=== PATIENT | female | born 1950 | race Caucasian/White ===

== ENCOUNTER 2017-05-05 11:08 | Emergency (ER) | payer BC ==
[2017-05-05 11:22] VITALS: BP 142/67
--- NOTE | 2017-05-05 12:40 | UC ---
Shauna Fernandez Salem, scribed for Diogenes Duffy MD on 05/05/17 at 1126 . Throat Pain/Nasal Vignesh HPI - HPI Summary HPI Summary: Patient is a 67 y/o F who presents to the with a sore throat since the past 5 days. She reports trouble speaking, chest congestion, SOB with walking, and a cough productive for thick and creamy sputum (and increased rib pain with cough) . She denies ear pain, rhinorrhea, fever, chills, or diaphoresis. She states that she was in [place] recently and that her hotel room was a bit musty. PMHx of sleep apnea. Patients medication reviewed this visit. - History of Current Complaint Chief Complaint: UCGeneralIllness Stated Complaint: COUGH Hx Obtained From: Patient Onset/Duration: Gradual Onset, Lasting Days, Still Present Severity: Moderate Pain Intensity: 4 Pain Scale Used: 0-10 Numeric Cough: Sputum Appears Associated Signs & Symptoms: Positive: Hoarseness. Negative: Nasal Discharge, Fever - Allergies/Home Medications Allergies/Adverse Reactions: Allergies Allergy/AdvReac Type Severity Reaction Status Date / Time POISON [place]RA[place]/BLACK [place]AL[place] Allergy Severe SEVERE RASH Uncoded 05/05/17 11:14 Home Medications: Home Medications Citalopram TAB* [Celexa TAB*] 1 tab PO DAILY 05/05/17 [History Confirmed ] Ferrous Fumarate W/ B12-Vit C- [Ferocon] 05/05/17 [History] [id number] W/ APAP [Vicks Dayquil Severe ... [id number] mg/15Ml] [History] PMH/Surg Hx/FS Hx/Imm Hx Neurological History: Other Other Neurological History: Sleep apnea. - Surgical History Surgical History: Yes Surgery Procedure, Year, and Place: 2004 OPEN SASHA EN Y FOR WEIGHT LOSS, [place], [place]. 2006 ABDOMINAL HERNIA REPAIR, [place]. 2011 LEFT BUNIONECTOMY, [place], [place]. 06/2012 RIGHT KNEE MENISCUS SURGERY[place] [facility] [place] HX OF PLASTIC SURGERY. 2 TRIGGER THUMB-1 TRIGGER FINGER. CARPAL TUNNEL LEFT HAND. INGROWN TONE NAIL-WART REMOVAL OFF BOTTOM OF FOOT - Family History Known Family History: Negative: Blood Disorder - Social History Alcohol Use: Weekly Alcohol Amount: one glass of wine 4xs a week Substance Use Type: None Smoking Status (MU): Never Smoked Tobacco Review of Systems Constitutional: Negative Eyes: Negative ENT: Sore Throat, Other - Trouble speaking. Respiratory: Shortness Of Breath, Cough, Other - Chest congestion. All Other Systems Reviewed And Are Negative: Yes Physical Exam Triage Information Reviewed: Yes Vital Signs: Initial Vital Signs Temp 99.0 F 05/05/17 11:16 Pulse 71 05/05/17 11:16 Resp 18 05/05/17 11:16 BP 142/67 05/05/17 11:16 Pulse Ox 99 05/05/17 11:16 BP noted. Vital Signs Reviewed: Yes - Additional Comments The patient is well-nourished in no acute distress and in no acute pain. The skin is warm and dry and skin color reflects adequate perfusion. HEENT: The head is normocephalic and atraumatic. The pupils are equal and reactive. The conjunctivae are clear and without drainage. Nares are patent and without drainage. Mouth reveals moist mucous membranes and the throat is without erythema and exudate. The external ears are intact. The ear canals are patent and without drainage. The tympanic membranes are intact. Neck is supple with full range of motion and non-tender. Respiratory: Chest is non-tender. Diffuse rhonchi and wheezing throughout. Cardiovascular: Hear is regular rate and rhythm. There is no murmur or rub auscultated. There is no peripheral edema and pulses are symmetrical and equal. Musculoskeletal: There is no back pain noted. Extremities are non-tender with full range of motion. There is good capillary refill. Neurological: Patient is alert and oriented to person, place and time. The patient has symmetrical motor strength in all four extremities. Psychiatric: The patient has an appropriate affect and does not exhibit any anxiety or depression. Throat Pain/Nasal Course/Dx - Course Course Of Treatment: 67 y/o F presents with a sore throat since the past 5 days. She reports trouble speaking, chest congestion, SOB with walking, and a cough productive for thick and creamy sputum (and increased rib pain with cough) . She denies ear pain, rhinorrhea, fever, chills, or diaphoresis. Pt will be DC' d with an inhaler, and with instructions and follow up. - Differential Dx/Diagnosis Provider Diagnoses: Acute tracheolaryngeal bronchitis. Discharge - Discharge Plan Condition: Stable Disposition: HOME Prescriptions: Albuterol HFA INHALER* [Ventolin HFA Inhaler*] 2 puff INH Q6H PRN #1 mdi MDD 4 PRN Reason: cough Azithromycin TAB* [Zithromax TAB (Z-KESHAWN) 250 mg #6 tabs] 2 tab PO .TODAY, THEN 1 DAILY #1 keshawn predniSONE TAB* [Deltasone TAB*] 60 mg PO DAILY #15 tab Patient Education Materials: How to Use a Metered-Dose Inhaler and a Spacer (ED ), Acute Bronchitis (ED) Referrals: Lisa Zuniga MD [Primary Care Provider] - Additional Instructions: Please follow up with your primary care provider. The documentation as recorded by the Shauna harris Salem accurately reflects the service I personally performed and the decisions made by , Diogenes Duffy MD.
== END 2017-05-05 11:53 | disposition home or self-care (01) ==
LOC: UCEAST 11:08
DX: J40 Bronchitis, not specified as acute or chronic (principal)
CPT/HCPCS: 99212; G0463

== ENCOUNTER 2017-07-07 16:48 | Emergency (ER) | payer BC ==
[2017-07-07 16:57] VITALS: BP 129/64
--- NOTE | 2017-07-07 21:33 | UC ---
Alfredo Fernandez Thomas, scribed for Madelin Sheffield DO on 07/07/17 at 1716 . Lower Extremity/Ankle HPI - HPI Summary HPI Summary: The pt is a 67 y/o F presenting to [facility] [place] c/o right knee pain that began 7 days ago. Today, she was referred to [facility] from her chiropractor with intention to rule out a DVT. Seven days ago, the patient fell forward on both of her knees while walking. She describes her fall as hard, and my breath was knocked out. Four days ago, the patient says she began to feel a soreness and tightness in her right knee that has not changed since it began. She also describes her pain as a little like a pulled tendon except broader and a congestion feeling in her knee. The pain is in the back of the knee only and does not radiate. The pain is rated 6/10. The pain is aggravated by activities of daily life and the pain is alleviated by nothing. The patient has treated the pain with nothing prior to arrival. Pt additionally c/o swelling to her knee. Pt denies swelling to her entire leg, fevers, chills, sweating, palpitations, SOB, CP, sore throat , pain with urination, and eye drainage. PMHx: heart murmur, sleep apnea, CPAP use, and lower back pain. PSHx: Sasha En Y surgery and hernia repair. SHx: no smoking, weekly alcohol use. FHx: CAD, CHF, DM, CA, negative for blood clots. She denies taking any hormones at this time. - History of Current Complaint Chief Complaint: UCLowerExtremity Stated Complaint: KNEE COMPLAINT Time Seen by Provider: 07/07/17 17:05 Hx Obtained From: Patient Onset/Duration: Lasting Days - 7 days, Still Present Severity Initially: Moderate Pain Intensity: 6 Pain Scale Used: 0-10 Numeric Aggravating Factor(s): Other - POS: ADLs Alleviating Factor(s): Rest Able to Bear Weight: Yes - Risk Factors DVT Risk Factors: Negative - Allergies/Home Medications Allergies/Adverse Reactions: Allergies Allergy/AdvReac Type Severity Reaction Status Date / Time POISON [place]RA[place]/BLACK [place] Allergy Severe SEVERE RASH Uncoded 05/05/17 13:08 PMH/Surg Hx/FS Hx/Imm Hx Previously Healthy: No - sleep apnea, CPAP use, lower back pain Cardiovascular History: Other - heart murmur Other Cardiovascular History: heart murmur - Surgical History Surgical History: Yes Surgery Procedure, Year, and Place: 2004 OPEN SASHA EN Y FOR WEIGHT LOSS, [place], [place]. 2006 ABDOMINAL HERNIA REPAIR, [place], [place]. 2011 LEFT BUNIONECTOMY, [place], [place]. 06/2012 RIGHT KNEE MENISCUS SURGERY, [facility] [place] HX OF PLASTIC SURGERY. 2 TRIGGER THUMB-1 TRIGGER FINGER. CARPAL TUNNEL LEFT HAND. INGROWN TONE NAIL-WART REMOVAL OFF BOTTOM OF FOOT - Family History Known Family History: Positive: Cardiac Disease, Diabetes, Other - POS: CHF, CA , negative for blood clots. Negative: Blood Disorder - Social History Alcohol Use: Weekly Alcohol Amount: one glass of wine 4xs a week Substance Use Type: None Smoking Status (MU): Never Smoked Tobacco Review of Systems Constitutional: Negative Skin: Negative Eyes: Negative ENT: Negative Respiratory: Negative Cardiovascular: Negative Gastrointestinal: Negative Genitourinary: Negative Motor: Negative Neurovascular: Negative Musculoskeletal: Other: - POS: right knee pain onset 7 days ago s/p fall ( located in back of knees, 04/30, "congestion"/pressure/soreness, worsened with movement) Neurological: Negative Psychological: Negative All Other Systems Reviewed And Are Negative: Yes Physical Exam Triage Information Reviewed: Yes Appearance: Well-Appearing, No Pain Distress, Well-Nourished Vital Signs: Initial Vital Signs Temp 97.6 F 07/07/17 16:52 Pulse 72 07/07/17 16:52 Resp 18 07/07/17 16:52 BP 129/64 07/07/17 16:52 Pulse Ox 98 07/07/17 16:52 Eyes: Positive: Conjunctiva Clear. Negative: Discharge ENT: Positive: Hearing grossly normal. Negative: Muffled/hoarse voice Neck exam: Normal Neck: Positive: Supple Respiratory: Positive: Lungs clear, Normal breath sounds, No respiratory distress, No accessory muscle use Cardiovascular: Positive: RRR, No Murmur Musculoskeletal Exam: Normal Musculoskeletal: Positive: No Edema, Other: - Proximal calf tenderness. Greatest tenderness in popliteal fossa. There is no Hattie's sign. Neurological: Positive: Alert, Muscle Tone Normal Psychological Exam: Normal Psychological: Positive: Age Appropriate Behavior Skin Exam: Normal Skin: Positive: Other - Warm, dry, normal color Lower Extremity Course/Dx - Course Course Of Treatment: The pt is a 67 y/o F presenting to [facility] c/o right knee pain that began 7 days ago. Today, she was referred to [facility] from her chiropractor with intention to rule out a DVT. Seven days ago, the patient fell forward on both of her knees while walking. She describes her fall as hard, and my breath was knocked out. Four days ago, the patient says she began to feel a soreness and tightness in her right knee that has not changed since it began. She also describes her pain as a little like a pulled tendon except broader and a congestion feeling in her knee. The pain is in the back of the knee only and does not radiate. The pain is rated 6/10. The pain is aggravated by activities of daily life and the pain is alleviated by nothing. The patient has treated the pain with nothing prior to arrival. Pt additionally c/o swelling to her knee. Pt denies swelling to her entire leg, fevers, chills, sweating, palpitations, SOB, CP, sore throat, pain with urination, and eye drainage. PMHx : heart murmur, sleep apnea, CPAP use, and lower back pain. PSHx: Sasha En Y surgery and hernia repair. SHx: no smoking, weekly alcohol use. FHx: CAD, CHF, DM, CA, negative for blood clots. She denies taking any hormones at this time. High blood pressure noted. The patient was instructed to go to [facility] [place] ED to rule out a DVT. When told this, the patient states that she prefers to return to [facility] tomorrow when ultrasound services are available at 07:30. At this point, we explained to the patient that she would have to sign out AMA. We also explained the risks of a pulmonary embolism, including respiratory distress, respiratory arrest, and . The patient voiced an understanding of these risks. - Differential Dx/Diagnosis Differential Diagnosis/HQI/PQRI: Arthritis, DVT, Sprain, Other - rinaldi's cyst Provider Diagnoses: Elevated blood pressure without a diagnosis of hypertension Discharge - Discharge Plan Condition: Stable Disposition: AGAINST MEDICAL ADVICE Discharge Disposition Comment: Referred to [facility] [place] ED Patient Education Materials: Deep Venous Thrombosis (ED) Referrals: Lisa Zuniga MD [Primary Care Provider] - Additional Instructions: What we worry about with blood clots are pulmonary embolisms, which can cause respiratory distress and . This is why no one wants to touch your knee until a DVT has been ruled out. If you have any symptoms such as chest pain, palpitations, shortness of breath, or a fever, then you need to go to the emergency room. In regards to your lymphatic system, you can do can try brushing and breathing exercises. Avoid hard straining with your breathing. Another great lymph planting material remover is using a trampoline. Do none of these things until after DVT is ruled out. Your blood pressure was elevated at this visit. That does not mean you have hypertension, it is probably due to your current condition. Please follow up with your primary care provider. The documentation as recorded by the Alfredo harris Thomas accurately reflects the service I personally performed and the decisions made by me, Madelin Sheffield DO.
== END 2017-07-07 18:09 | disposition left against medical advice (07) ==
LOC: UCEAST 16:48
DX: M25.561 Pain in right knee (principal); R03.0 Elevated blood-pressure reading, without diagnosis of hypertension; M54.5 Low back pain; R01.1 Cardiac murmur, unspecified
CPT/HCPCS: 99212; G0463

== ENCOUNTER 2017-07-08 09:53 | Emergency (ER) | payer BC ==
--- NOTE | 2017-07-08 11:04 | UC ---
Lower Extremity/Ankle HPI - HPI Summary HPI Summary: PT HERE WITH 5 DAYS OF PAIN BEHIND RIGHT KNEE. FELL ABOUT 10 DAYS AGO. SEEN HERE YESTERDAY AND ADVISED TO GO TO ER FOR US TO R/O DVT BUT PT SIGNED OUT AMA STATING SHE WOULD RATHER COME BACK HERE TODAY WHEN US WAS AVAILABLE. NO SOB, CP , PALPITATIONS, NAUSEA OR CALF PAIN. - History of Current Complaint Chief Complaint: UCLowerExtremity Stated Complaint: PAIN BEHIND RIGHT KNEE Time Seen by Provider: 07/08/17 10:41 Hx Obtained From: Patient Onset/Duration: Gradual Onset, Lasting Days, Still Present Severity Initially: Moderate Severity Currently: Moderate Pain Intensity: 5 Pain Scale Used: 0-10 Numeric Aggravating Factor(s): Standing, Ambulation Alleviating Factor(s): Rest Able to Bear Weight: Yes - Allergies/Home Medications Allergies/Adverse Reactions: Allergies Allergy/AdvReac Type Severity Reaction Status Date / Time POISON [place]RA[place]/BLACK [place] Allergy Severe SEVERE RASH Uncoded 07/08/17 09:58 PMH/Surg Hx/FS Hx/Imm Hx - Additional Past Medical History Additional PMH: sleep apnea Respiratory History: Asthma - Surgical History Surgical History: Yes Surgery Procedure, Year, and Place: 2005 OPEN SASHA EN Y FOR WEIGHT LOSS, [place], [place]. 2006 ABDOMINAL HERNIA REPAIR, [place], [place]. 2011 LEFT BUNIONECTOMY, [place], [place]. 06/2012 RIGHT KNEE MENISCUS [place]GERY, [facility] [place] HX OF PLASTIC SURGERY. 2 TRIGGER THUMB-1 TRIGGER FINGER. CARPAL TUNNEL LEFT HAND. INGROWN TONE NAIL-WART REMOVAL OFF BOTTOM OF FOOT - Family History Known Family History: Positive: Cardiac Disease, Diabetes, Other - POS: CHF, [place] , negative for blood clots. Negative: Blood Disorder - Social History Alcohol Use: Weekly Alcohol Amount: one glass of wine 4xs a week Substance Use Type: None Smoking Status (MU): Never Smoked Tobacco Review of Systems Constitutional: Negative Skin: Negative Respiratory: Negative Cardiovascular: Negative Gastrointestinal: Negative Musculoskeletal: Other: - PAIN BEHIND RIGHT KNEE All Other Systems Reviewed And Are Negative: Yes Physical Exam Triage Information Reviewed: Yes Appearance: Well-Appearing, No Pain Distress, Well-Nourished Vital Signs: Initial Vital Signs Temp 98.3 F 07/08/17 10:01 Pulse 59 07/08/17 10:01 Resp 16 07/08/17 10:01 Pulse Ox 99 07/08/17 10:01 Vital Signs Reviewed: Yes Eyes: Positive: Conjunctiva Clear ENT: Positive: Hearing grossly normal Neck: Positive: Supple Respiratory: Positive: No respiratory distress, No accessory muscle use Cardiovascular: Positive: Pulses Normal Abdomen Description: Positive: Soft Musculoskeletal: Positive: ROM Intact, No Edema, Other: - TTP RIGHT POPLITEAL FOSSA, WORSE WITH HOMANS Neurological: Positive: Alert Psychological: Positive: Age Appropriate Behavior Skin: Negative: rashes Diagnostics - Radiology RLE US Xray Interpretation: Positive (See Comments) - 1. NO RIGHT LOWER EXTREMITY DEEP VEIN THROMBOSIS 2. 4.3 CM BAUTISTA'S CYST. Radiology Interpretation Completed By: Radiologist Lower Extremity Course/Dx - Differential Dx/Diagnosis Provider Diagnoses: RIGHT SIDED BAKERS CYST Discharge - Discharge Plan Condition: Stable Disposition: HOME Patient Education Materials: Bakers Cyst (ED) Referrals: Alec Johnson MD [Medical Doctor] - 1 Week Lisa Zuniga MD [Primary Care Provider] - If Needed Additional Instructions: 4.3 CM BAUTISTA'S CYST SEEN ON ULTRASOUND TODAY. NO BLOOD CLOT. FOLLOW-UP WITH ORTHO TO DISCUSS FURTHER TREATMENT. OTC NSAIDS NEEDED FOR DISCOMFORT.
--- NOTE | 2017-07-08 11:50 | RAD ---
HISTORY: Popliteal pain COMPARISONS: None relevant TECHNIQUE: Multiple transverse and longitudinal ultrasound images were obtained of the right lower extremity from the level of the common femoral vein inferiorly through to the infrapopliteal veins using grayscale, color Doppler, and spectral Doppler imaging with and without compression and with augmentation. Comparison images were obtained of the contralateral common femoral vein. FINDINGS: VEINS: The venous system of the right lower extremity is compressible throughout its course, with normal flow on color Doppler imaging and normal response to augmentation on spectral Doppler imaging. SOFT TISSUES: Unremarkable. OTHER FINDINGS: There is a 4.3 x 0.9 x 3.3 cm popliteal cyst IMPRESSION: 1. NO RIGHT LOWER EXTREMITY DEEP VEIN THROMBOSIS 2. 4.3 CM BAUTISTA'S CYST.
== END 2017-07-08 12:00 | disposition home or self-care (01) ==
LOC: UCEAST 09:53
DX: M71.21 Synovial cyst of popliteal space [Baker], right knee (principal); M25.561 Pain in right knee; J45.909 Unspecified asthma, uncomplicated
CPT/HCPCS: 99211; G0463

== ENCOUNTER 2022-07-18 09:11 | Inpatient (IN) ==
[2022-07-18] MEDS ORDERED: Iodixanol (CONTRAST) 320 MG/ML 100 ML SDV IV ONE (09:52)
[2022-07-18 10:25] LABS: ABS Basophils 0.1 10^3/ul (0-0.2); ABS Eosinophils 0.1 10^3/ul (0-0.6); ABS Lymphocytes 1.3 10^3/ul (1.0-4.8); ABS Monocytes 0.4 10^3/ul (0-0.8); ABS Neutrophils 4.2 10^3/ul (1.5-7.7); Eosinophil % 1.8 %; Hematocrit 40 % (35-47); Hemoglobin 13.2 g/dL (12.0-16.0); Lymphocyte % 21.6 %; Mean Corpuscular HGB Conc 33 g/dL (31-36); Mean Corpuscular Hemoglobin 32 pg (27-31); Mean Corpuscular Volume 95 fL (80-97); Mean Platelet Volume 10.3 fL (7.4-10.4); Platelet Count 167 10^3/uL (150-450); Red Blood Count 4.18 10^6 /uL (3.70-4.87); Red Cell Distribution Width 14 % (10-15); White Blood Count 6.1 10^3/uL (3.5-10.8)
[2022-07-18 10:40] LABS: Activated Partial Thrombo Time 29.4 seconds (26.0-38.0); INR 1.01 (0.89-1.11)
[2022-07-18 11:06] LABS: Potassium 4.1 mmol/L (3.5-5.0)
[2022-07-18 11:07] LABS: Albumin 3.5 g/dL (3.2-5.2); Albumin/Globulin Ratio 1.8 (1-3); Calcium 8.9 mg/dL (8.6-10.3); Globulin 1.9 g/dL (2-4); HDL Cholesterol 49.8 mg/dL; Total Bilirubin 0.5 mg/dL (0.2-1.0); Total Protein 5.4 g/dL (6.4-8.9)
[2022-07-18 11:30] LABS: Urine Appearance Clear; Urine Bilirubin Negative (Negative); Urine Blood Negative (Negative); Urine Color Straw; Urine Glucose Negative (Negative); Urine Ketones Negative (Negative); Urine Nitrite Negative (Negative); Urine Protein Negative (Negative); Urine Specific Gravity <=1.005 (1.005-1.030); Urine Urobilinogen 0.2 (Negative) (Negative)
[2022-07-18 11:56] LABS: High Sensitivity Troponin 1 Hr 6 pg/mL (<15)
[2022-07-18] MEDS: Enoxaparin 40 MG/0.4 ML SYR SUBCUT SCH (12:49)
[2022-07-19 07:37] VITALS: BP 139/70
[2022-07-19] MEDS: Enoxaparin 40 MG/0.4 ML SYR SUBCUT SCH (15:36)
== END 2022-07-19 17:15 | disposition home or self-care (01) | DRG 69 ==
LOC: ED 09:11 → EDHOLD 11:56 → MEDTELE 13:37
PROVIDERS: ADMIT Internal Medicine; ATTEND Internal Medicine